=== PATIENT | female | born 2005 | race Caucasian/White ===

== ENCOUNTER 2024-10-18 23:02 | Emergency (ER) | payer OTHER ==
[2024-10-18 23:07] VITALS: BP 115/77; PULSE 68; RESP 18; TEMP 97.8; BMI 26.2
[2024-10-18] MEDS ORDERED: DIPHTH,PERTUSS(ACELL),TET 0.5 ML DISP.SYRIN IM ONE ×2 (23:25→23:30)
== END 2024-10-18 23:34 | disposition home or self-care (01) ==
LOC: FER 23:02
PROC: 3E0234Z Introduction of Serum, Toxoid and Vaccine into Muscle, Percutaneous Approach (ICD-10-PCS; principal; 2024-10-18)
DX: S60.512A Abrasion of left hand, initial encounter (principal); W22.8XXA Striking against or struck by other objects, initial encounter
CPT/HCPCS: 90471; 90715; 99284-25